=== PATIENT | male | born 1965 | race African-American/Black ===

== ENCOUNTER 2022-09-27 16:23 | Emergency (ER) | payer BC, SELFPAY ==
--- NOTE | ~2022-09-27 | XR_ITS ---
EXAMINATION: XR finger 3rd RT min 2V DATE: 09/27/2022 16:51 INDICATION: Right hand third digit injury and pain. TECHNIQUE: 4 views of right hand third digit were obtained. COMPARISON: None. FINDINGS: Bone alignment is normal. No fracture. There is moderate osteoarthritis of third distal int erphalangeal joint. IMPRESSION: 1. 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 Reviewed, dictated and finalized at location E.
[2022-09-27 16:35] VITALS: BP 169/98; PULSE 75; RESP 16; TEMP 36.1; O2SAT 100
--- NOTE | 2022-09-27 17:25 | ED.UPPEXIN ---
HPI - Extremity Injury (Upper) General Chief Complaint: Extremity Injury, Upper Stated Complaint: finger pain right hand Time Seen by Provider: 09/27/22 17:20 Source: patient and RN notes reviewed Mode of arrival: ambulatory Limitations: no limitations History of Present Illness HPI narrative: Patient presents today complaining of injury to the right 3rd finger. He jammed it on a door knob 2 weeks ago and has been having some swelling and mild pain ever since. Denies numbness or tingling. States pain and swelling is worse in the morning and less than throughout the day. Currently rates his pain 2/10. He has not been taking any [id number] medication for symptoms prior to arrival Related Data Home Medications Medication Instructions Recorded Confirmed olmesartan 40 1 tablet PO DAILY 09/27/22 09/27/22 mg-hydrochlorothiazide 25 mg tablet Allergies Allergy/AdvReac Type Severity Reaction Status Date / Time No Known Allergies Allergy Verified 09/27/22 16:58 Review of Systems Review of Systems: CONSTITUTIONAL: Denies body aches, fever, chills, or sweats. EYES: Denies visual changes, redness, or discharge. ENT: Denies rhinorrhea, congestion, sore throat, or otalgia. CARDIOVASCULAR: Denies chest pain, palpitations, or edema. RESPIRATORY: Denies cough or dyspnea. GASTROINTESTINAL: Denies abdominal pain, nausea, vomiting, or diarrhea. GENITOURINARY: Denies dysuria or hematuria. SKIN: Denies rash, itching, or wounds. MUSCULOSKELETAL: Denies back pain, or myalgia.+ right 3rd finger injury NEUROLOGIC: Denies headache, numbness, tingling, or weakness. PSYCH: Denies depression or anxiety. FORMERLY [facility], [facility]–1983 Past Medical History Medical History (Updated 09/27/22 @ 17:29 by Karyna Mccauley, [employer], ) Hypertension Comments At time of signature, I have reviewed and agree with nursing past medical, surgical, social and family history unless otherwise noted. Please see nursing chart for further information. There is no relevant family history pertinent to the presenting complaint Exam Narrative: GENERAL: Well-appearing, well-nourished, and in no acute distress. HEAD: Normocephalic, atraumatic. EYES: EOMI. No redness or drainage. Conjunctivae normal. ENT: Mucous membranes pink and moist. NECK: Normal AROM. CHEST: No respiratory distress. EXTREMITIES: Right 3rd finger: Mild swelling to the middle phalanx. Tenderness to the D IP. Distal sensation intact. Capillary refill normal. Full range of motion of the finger with mild increased pain in the D IP. No ecchymosis, erythema, or crepitus noted. SKIN: Warm, dry, no rash. Capillary refill normal. Normal skin turgor. NEURO: No focal deficits. Alert and oriented x3. Gait steady. PSYCH: Normal affect. No signs of depression or anxiety. Course Course Level of Care: Express Care Visit Vital Signs Vital signs: Vital Signs Temperature 96.9 F L 09/27/22 16:35 Pulse Rate 75 09/27/22 16:35 Respiratory Rate 16 09/27/22 16:35 Blood Pressure 169/98 H 09/27/22 16:35 Pulse Oximetry 100 09/27/22 16:35 Oxygen Delivery Room Air 09/27/22 16:35 Temperature 96.9 F L 09/27/22 16:35 Pulse Rate 75 09/27/22 16:35 Respiratory Rate 16 09/27/22 16:35 Blood Pressure 169/98 H 09/27/22 16:35 Pulse Oximetry 100 09/27/22 16:35 Oxygen Delivery Room Air 09/27/22 16:35 Reviewed. Pt has been instructed to follow up with his PCP regarding his elevated blood pressure today. MDM - Extremity Injury (Upper) MDM Narrative Medical decision making narrative: X-rays negative for fracture. Patient declined splint. Instructed to use ice and an anti-inflammatory to help with swelling. No prescription medications indicated at this time. Anticipatory guidance given. Differential Diagnosis Differential diagnosis: Likely finger sprain and other (Finger fracture) Imaging Data Radiologist's impression: ITS Impressions Finger X-Ray 09/27/22
== END 2022-09-27 17:36 | disposition home or self-care (01) ==
PROVIDERS: Emergency Provider Nurse Practitioner; PCP Internal Medicine
DX: S63.692A Other sprain of right middle finger, initial encounter (principal); W22.8XXA Striking against or struck by other objects, initial encounter; I10 Essential (primary) hypertension
CPT/HCPCS: 73140; 99203; G0463